=== PATIENT | male | born 2000 | race Caucasian/White ===

== ENCOUNTER 2023-08-26 11:53 | Emergency (ER) | payer OTHER ==
[~2023-08-26] VITALS: Ht 188 cm; Wt 100.0 kg
[2023-08-26 11:57] VITALS: BP 151/84; PULSE 92; RESP 18; TEMP 98.2
[2023-08-26] MEDS: POVIDONE-IODINE 10% 15 ML SOLUTION UD TP ONE (12:52)
[2023-08-26] MEDS: LIDOCAINE 1%/EPI 1:200,000/PF 10 ML VIAL PERC ONE (12:52)
[2023-08-26] MEDS ORDERED: CEPH-558 PO (13:49)
[2023-08-26] MEDS ORDERED: SULF-261 PO (13:50)
== END 2023-08-26 13:52 | disposition home or self-care (01) ==
LOC: EMS 11:53
DX: L72.9 Follicular cyst of the skin and subcutaneous tissue, unspecified (principal)
CPT/HCPCS: 99283; 10060; J3490

== ENCOUNTER 2024-02-17 11:13 | Emergency (ER) | payer OTHER ==
[~2024-02-17] VITALS: Ht 175.3 cm; Wt 63.6 kg
[~2024-02-17 11:13] MED LIST: CEPH-558 PO; SULF-261 PO
[2024-02-17 11:28] VITALS: TEMP 97.2
[2024-02-17] MEDS: SODIUM CHLORIDE 0.9% 1,000 ML IV ONE (12:25)
[2024-02-17] MEDS: ACETAMINOPHEN 500 MG TABLET PO ONE (12:26)
[2024-02-17] MEDS: PB/HYOSCY/ATR/SCOP/LIDO/MAALOX 55 ML BOTTLE PO ONE (12:26)
[2024-02-17] MEDS: KETOROLAC TROMETHAMINE 30 MG/ML VIAL IVP ONE (12:26)
[2024-02-17] MEDS: ONDANSETRON HCL 4 MG/2 ML VIAL IVP ONE (12:26)
[2024-02-17 12:45] LABS: BASOPHILS % (AUTO) 0.5 % (0.0-2.0); EOSINOPHILS % (AUTO) 0.8 % (1.0-6.0); HEMOGLOBIN 14.8 g/dL (13.5-17.5); LYMPHOCYTES # (AUTO) 1.5 K/uL (1.0-4.8); LYMPHOCYTES % (AUTO) 27.2 % (22.0-44.0); MEAN CORPUSCULAR HEMOGLOBIN 31.4 pg (26.0-34.0); MEAN CORPUSCULAR HGB CONC 33.7 G/dL (31.0-37.0); MEAN CORPUSCULAR VOLUME 93 fL (80-100); MONOCYTES # (AUTO) 0.5 K/uL (0.1-1.0); MONOCYTES % (AUTO) 8.4 % (2.0-9.0); NEUTROPHILS # (AUTO) 3.5 K/uL (1.8-7.7); NEUTROPHILS % (AUTO) 63.1 % (40.0-70.0); PLATELET COUNT (AUTO) 190 K/uL (150-450); RED BLOOD CELL COUNT(AUTO) 4.72 MIL/uL (4.50-5.90); RED CELL DISTRIBUTION WIDTH 13.8 % (11.5-14.5); WHITE BLOOD COUNT (AUTO) 5.5 K/uL (4.5-11.0)
[2024-02-17 12:52] LABS: ANION GAP 6 mmol/L (8-16); CALCIUM, TOTAL 9.2 mg/dL (8.8-10.5); CARBON DIOXIDE 30 mmol/L (22-29); CHLORIDE 102 mmol/L (98-107); CREATININE 0.95 mg/dL (0.60-1.30); GLOMERULAR FILTR. RATE CALC > 60 mL/min (>60); GLUCOSE,RANDOM 83 mg/dL (70-110); LIPASE 22 U/L (16-77); POTASSIUM 3.6 mmol/L (3.5-5.1); SODIUM SERUM 137 mmol/L (136-145); UREA NITROGEN, BLOOD 13 mg/dL (7-18)
[2024-02-17] MEDS ORDERED: ACET-66 PO (13:30)
[2024-02-17] MEDS ORDERED: OMEP20 PO (13:30)
[2024-02-17] MEDS ORDERED: ONDA-104 PO (13:30)
[2024-02-17 13:33] VITALS: BP 106/73; PULSE 76; RESP 16; O2SAT 99
== END 2024-02-17 13:46 | disposition home or self-care (01) ==
LOC: EMS 11:13
DX: K29.70 Gastritis, unspecified, without bleeding (principal); F41.9 Anxiety disorder, unspecified; R10.13 Epigastric pain; F17.210 Nicotine dependence, cigarettes, uncomplicated; F12.90 Cannabis use, unspecified, uncomplicated
CPT/HCPCS: 99284; 96374; 96361; 96375; 80048; 83690; 85025; 36415; J1885; J2405; J7030

== ENCOUNTER 2024-03-19 14:11 | Emergency (ER) | payer OTHER ==
[~2024-03-19] VITALS: Ht 185.4 cm; Wt 77.7 kg
[~2024-03-19 14:11] MED LIST changes: +ACET-66 PO; +OMEP20 PO; +ONDA-104 PO
[2024-03-19 14:21] VITALS: BP 112/69; PULSE 112; RESP 18; TEMP 98.6; O2SAT 99
[2024-03-19 15:50] LABS: BASOPHILS % (AUTO) 0.5 % (0.0-2.0); EOSINOPHILS % (AUTO) 1.5 % (1.0-6.0); HEMATOCRIT 47.6 % (41-53); HEMOGLOBIN 15.6 g/dL (13.5-17.5); LYMPHOCYTES # (AUTO) 1.5 K/uL (1.0-4.8); LYMPHOCYTES % (AUTO) 30.7 % (22.0-44.0); MEAN CORPUSCULAR HEMOGLOBIN 30.8 pg (26.0-34.0); MEAN CORPUSCULAR HGB CONC 32.8 G/dL (31.0-37.0); MEAN CORPUSCULAR VOLUME 94 fL (80-100); MONOCYTES # (AUTO) 0.4 K/uL (0.1-1.0); MONOCYTES % (AUTO) 7.3 % (2.0-9.0); PLATELET COUNT (AUTO) 228 K/uL (150-450); RED BLOOD CELL COUNT(AUTO) 5.06 MIL/uL (4.50-5.90); RED CELL DISTRIBUTION WIDTH 13.8 % (11.5-14.5)
[2024-03-19 16:20] LABS: ANION GAP 6 mmol/L (8-16); CALCIUM, TOTAL 9.7 mg/dL (8.8-10.5); CARBON DIOXIDE 32 mmol/L (22-29); CHLORIDE 100 mmol/L (98-107); CREATININE 0.96 mg/dL (0.60-1.30); GLOMERULAR FILTR. RATE CALC > 60 mL/min (>60); GLUCOSE,RANDOM 78 mg/dL (70-110); POTASSIUM 4.3 mmol/L (3.5-5.1); SODIUM SERUM 138 mmol/L (136-145); UREA NITROGEN, BLOOD 17 mg/dL (7-18)
[2024-03-19 16:31] LABS: ALANINE AMINOTRANSFERASE 18 U/L (12-78); ALKALINE PHOSPHATASE 74 U/L (46-116); ASPARTATE AMINOTRANSFERASE 18 U/L (15-37); BILIRUBIN,TOTAL 0.5 mg/dL (0.1-1.0); HCG,QUANTITATIVE < 1 mIU/mL (0-6); LIPASE 44 U/L (16-77)
== END 2024-03-19 19:38 | disposition left against medical advice (07) ==
LOC: EMS 14:14
DX: K59.00 Constipation, unspecified (principal); Z53.21 Procedure and treatment not carried out due to patient leaving prior to being seen by health care provider
CPT/HCPCS: 71045; 80048; 80076; 83690; 84702; 85025; 86308; 36415-L1; 36415-TC